=== PATIENT | female | born 1985 | race Caucasian/White ===

== ENCOUNTER 2018-10-14 19:41 | Emergency (ER) | payer OTHER ==
[2018-10-14 19:46] VITALS: RESP 16; O2SAT 100
--- NOTE | 2018-10-14 21:19 | ED PDOC ---
HPI: Back Time Seen by Provider: 10/14/18 19:58 Chief Complaint (Nursing): Upper Extremity Problem/Injury Chief Complaint (Provider): Back Pain History Per: Patient History/Exam Limitations: no limitations Onset/Duration Of Symptoms: Hrs Current Symptoms Are (Timing): Still Present Additional Complaint(s): 33 y/o female with no significant PMHx presents to the ED for evaluation of back pain. Patient states she was doing an exercise where her feet where on a medicine ball and her hands were on the floor trying to bring her feet closer to her hands by bending her back when she felt a crack in her back. At that time, patient reports of feeling instant pain. Patient's friend tried to massage her back. Patient states she then sat in a car for two hours causing stiffness thus worsening the pain. Patient reports pain has radiated to the left side. Patient additionally notes of feeling short of breath and every time she take a breath, expanding her rib cage, the pain worsens. Otherwise, patient denies numbness and weakness. PMD: none provided Past Medical History Reviewed: Historical Data, Nursing Documentation, Vital Signs Vital Signs: Last Vital Signs Temp 97.6 F 10/14/18 19:45 Pulse 60 10/14/18 19:45 Resp 16 10/14/18 19:45 BP 99/59 L 10/14/18 19:45 Pulse Ox 100 10/14/18 19:45 - Medical History PMH: No Chronic Diseases - Surgical History Surgical History: No Surg Hx - Family History Family History: States: No Known Family Hx - Home Medications Home Medications: Ambulatory Orders Medication Instructions Recorded Cyclobenzaprine [Cyclobenzaprine 10 mg PO BID #15 tab 10/14/18 HCl] Lidocaine 1 each TP DAILY #10 adh..patch 10/14/18 Naproxen [Naprosyn] 500 mg PO BID #30 tablet 10/14/18 - Allergies Allergies/Adverse Reactions: Allergies Allergy/AdvReac Type Severity Reaction Status Date / Time No Known Allergies Allergy Verified 10/14/18 19:51 Review of Systems ROS Statement: Except As Marked, All Systems Reviewed And Found Negative Respiratory: Positive for: Shortness of Breath Musculoskeletal: Positive for: Back Pain Neurological: Negative for: Weakness, Numbness Physical Exam - Reviewed Nursing Documentation Reviewed: Yes Vital Signs Reviewed: Yes - Physical Exam Appears: Positive for: Well, Uncomfortable Back: Positive for: Vertebral Tenderness (Tenderness to palpation of the right paraspinal thoracic muscle over the scapula. ) Extremity: Positive for: Normal ROM (Full ROM of the upper extremity), Other (Neurovascularly intact) Neurological/Psych: Positive for: Awake, Alert, Oriented (x3). Negative for: Motor/Sensory Deficits - ECG O2 Sat by Pulse Oximetry: 100 (ra) Medical Decision Making Medical Decision Making: Time: 2029 A/P: 33 y/o female presenting with musculoskeletal pain likely secondary to strain -- Flexeril 10 mg PO -- Toradol 60 mg IM -- Thoracic Spine [Dorsal (Thoracic) Spine] XR Time: 2214 -- XR as read by me demonstrates mild scoliosis but no other abnormality. On re- evaluation, patient reports of an improvement of symptoms. Patient appears to be in no acute distress and comfortable. Patient is stable for discharge home with instructions to follow up for further evaluation. Scribe Attestation: Documented by Manuelito Rahman, acting as a scribe for Carson Graves MD. Provider Scribe Attestation: All medical record entries made by the Scribe were at my direction and personally dictated by me. I have reviewed the chart and agree that the record accurately reflects my personal performance of the history, physical exam, medical decision making, and the department course for this patient. I have also personally directed, reviewed, and agree with the discharge instructions and disposition. Disposition - Clinical Impression Clinical Impression: Back pain - Patient ED Disposition Is Patient to be Admitted: No Counseled Patient/Family Regarding: Studies Performed, Diagnosis, Need For Followup, Rx Given - Disposition Referrals: Esteban Parsons MD [Staff Provider] - Disposition: Routine/Home Disposition Time: 22:15 Condition: IMPROVED Prescriptions: Cyclobenzaprine [Cyclobenzaprine HCl] 10 mg PO BID #15 tab Lidocaine 1 each TP DAILY #10 adh..patch Naproxen [Naprosyn] 500 mg PO BID #30 tablet Instructions: Upper Back Pain (DC) Forms: [facility] (Danish)
[2018-10-14 22:25] VITALS: BP 119/59; PULSE 59; TEMP 98
--- NOTE | 2018-10-15 10:09 | RAD ---
Date of service: 10/14/2018 HISTORY: injured back while doing exercise COMPARISON: No prior. TECHNIQUE: 2 views obtained. FINDINGS: BONES: Alignment maintained. No fracture. DISC SPACES: Normal. SOFT TISSUES: Normal. OTHER FINDINGS: None. IMPRESSION: Normal radiographs of the thoracic spine.
== END 2018-10-14 22:24 | disposition home or self-care (01) ==
LOC: H.ER 19:41
DX: M54.9 Dorsalgia, unspecified (principal)
CPT/HCPCS: 72070; 96372; 99283; J1885